=== PATIENT | female | born 1995 | race African-American/Black ===

== ENCOUNTER 2018-11-27 02:46 | Emergency (ER) | payer OTHER ==
[2018-11-27] MEDS ORDERED: BUPIVACAINE HCL 0.5 % INJ/PF 30 ML SDV INJ ONE (03:46)
[2018-11-27] MEDS ORDERED: DIPH/PERTUSS(ACELL)/TETANUS VAC/PF 0.5 ML SYR (>=10YO) IM ONE (03:47)
[2018-11-27] MEDS ORDERED: LIDOCAINE 2% INJ (20 MG/ML) 20 ML MDV INJ ONE (03:47)
--- NOTE | 2018-11-27 04:12 | RADIOLOGY REPORT (SQ) ---
EXAM DESCRIPTION: XR FOOT 3 OR MORE VIEWS COMPLETED DATE/TME: 11/27/2018 00:00 CLINICAL HISTORY: 23 years, Female, hair clip in 3rd toe COMPARISON: None. NUMBER OF VIEWS: Four TECHNIQUE: Four views of the right foot LIMITATIONS: None. FINDINGS: There is a hair clip along the tip of the third toe. There is no acute fracture or dislocation. The joint spaces are preserved. No large soft tissue swelling. IMPRESSION: No acute fracture or dislocation. Clip along the tip of the third toe. copyright 2010 [employer]- All Rights Reserved
--- NOTE | 2018-11-27 05:46 | RADIOLOGY REPORT (SQ) ---
EXAM DESCRIPTION: XR FOOT 1-2 VIEWS COMPLETED DATE/TME: 11/27/2018 05:07 CLINICAL HISTORY: 23 years Female, post removal foreign body COMPARISON: 1.6 hours prior. Findings: Known soft tissue injury; interval absence of a previous radioopaque foreign body. Bones, joints, and soft tissues of the RIGHT XR FOOT 2 VIEWS appear otherwise intact. IMPRESSION: Soft tissue injury; else, no acute findings. .
--- NOTE | 2018-11-27 06:16 | ER Document Report ---
ED General - General Chief Complaint: Foreign Body Stated Complaint: FOOT INJURY Time Seen by Provider: 11/27/18 03:30 Primary Care Provider: ANNEL BUCKLEY PA [Primary Care Provider] - Follow up in 3-5 days Notes: Patient is a pleasant 23-year-old female who presents with complaint of stepping on a hair pin that went into her foot when she was vacuuming. It is stuck in her left third toe. Patient is unsure if her tetanus is up-to-date. She denies any other injuries. No other complaints at this time. TRAVEL OUTSIDE OF THE [place] IN LAST 30 DAYS: No - Related Data Allergies/Adverse Reactions: No Known Allergies Allergy (Unverified 11/27/18 06:24) Past Medical History - Social History Smoking Status: Never Smoker Chew tobacco use (# tins/day): No Frequency of alcohol use: Occasional Drug Abuse: None Family History: Reviewed & Not Pertinent Patient has suicidal ideation: No Patient has homicidal ideation: No Renal/ Medical History: Denies: Hx Peritoneal Dialysis Review of Systems - Review of Systems Notes: My Normal Review Basic REVIEW OF SYSTEMS: CONSTITUTIONAL : Denies fever, chills, or sweats. Denies recent illness. MUSCULOSKELETAL: Metal pin in third toe left foot. SKIN: Denies rash or skin lesions. HEMATOLOGIC : Denies easy bruising or bleeding. NEUROLOGICAL: Denies sensory or motor loss. ALL OTHER SYSTEMS REVIEWED AND NEGATIVE. Physical Exam - Vital signs Vitals: Temp Pulse Resp BP Pulse Ox 98.4 F 100 16 124/89 H 100 11/27/18 02:58 11/27/18 02:58 11/27/18 02:58 11/27/18 02:58 11/27/18 02:58 - Notes Notes: General Appearance: Well nourished, alert, cooperative, no acute distress, mild obvious discomfort. Vitals: reviewed, See vital signs table. Extremities: strength 5/5 in all extremities, good pulses in all extremities, large metal pin going through the base of the third toe on the left foot. Good cap refill. No active large hemorrhage. Remainder of foot is normal-appearing. Skin: warm, dry, appropriate color, no rash Neuro: speech clear, oriented x 3, normal affect, responds appropriately to questions. Course - Re-evaluation Re-evalutation: 07/06/19 07:17 I cleaned the patient's foot and toe with chlorohexidine. I then did a digital block of the third toe. I injected approximately a total of 1-1/2 mL's of a mixture of half lidocaine 2% and half bupivacaine 0.5%. Patient tolerated this well. Pain was able to removed without causing patient much pain. Wound was cleaned. Wound was wrapped. Patient will be discharged home with Keflex. She was given tetanus shot. She is encouraged to return to ER if she has redness or swelling to the toe where she feels unwell. Patient given crutches so she does not have to bear weight on the toe for the next several days. Patient agrees with plan will be discharged home. Dictation of this chart was performed using voice recognition software; therefore, there may be some unintended grammatical errors. - Vital Signs Vital signs: Temp Pulse Resp BP Pulse Ox 98.3 F 78 18 120/78 100 11/27/18 06:35 11/27/18 06:35 11/27/18 06:35 11/27/18 06:35 11/27/18 06:35 Discharge - Discharge Clinical Impression: Foreign body Condition: Good Disposition: HOME, SELF-CARE Additional Instructions: Please keep the toe covered when into the shoe. Please take antibiotics as prescribed to help prevent infection. Return to ER immediately if there is any redness or swelling to the toe. Please use the crutches until you are no longer having pain with bearing weight on your foot. Prescriptions: Cephalexin Monohydrate [Keflex 500 mg Capsule] 500 mg PO BID #10 capsule Forms: Special Work Note Referrals: ANNEL BUCKLEY PA [Primary Care Provider] - Follow up in 3-5 days
[2018-11-27 06:47] VITALS: BP 120/78
== END 2018-11-27 06:35 | disposition home or self-care (01) ==
LOC: ER 02:46
DX: S91.145A Puncture wound with foreign body of left lesser toe(s) without damage to nail, initial encounter (principal); W22.09XA Striking against other stationary object, initial encounter; Y93.E3 Activity, vacuuming; Y92.009 Unspecified place in unspecified non-institutional (private) residence as the place of occurrence of the external cause; Z23 Encounter for immunization
CPT/HCPCS: 99283; 90471; 96374; 73630; 73620; 90715; 20103; J3490 ×2